=== PATIENT | female | born 1930 | race Caucasian/White ===

== ENCOUNTER 2017-06-18 18:58 | Emergency (ER) | payer OTHER ==
[~2017-06-18] VITALS: Ht 157.5 cm; Wt 71.2 kg
[2017-06-18 18:58] VITALS: BP_SYST 147
[2017-06-18] MEDS ORDERED: MORPHINE 2 MG/ML INJ. SYRINGE IVP ONE (20:30)
[2017-06-18 21:15] VITALS: BP_SYST 147
== END 2017-06-18 21:15 | disposition home or self-care (01) ==
LOC: SED 18:58
DX: S52.502A Unspecified fracture of the lower end of left radius, initial encounter for closed fracture (principal); S52.602A Unspecified fracture of lower end of left ulna, initial encounter for closed fracture; W01.0XXA Fall on same level from slipping, tripping and stumbling without subsequent striking against object, initial encounter; Y93.89 Activity, other specified; Y92.098 Other place in other non-institutional residence as the place of occurrence of the external cause; Y99.8 Other external cause status
CPT/HCPCS: 29125; 73100; 96374; 99284; J2270

== ENCOUNTER 2018-07-16 15:53 | Emergency (ER) | payer OTHER ==
[~2018-07-16] VITALS: Ht 152.4 cm; Wt 63.5 kg
[2018-07-16 16:16] VITALS: BP_SYST 154
--- NOTE | 2018-07-16 16:37 | NUR ---
Patient to ER bed 05 to gown for evaluation. Side rails up.
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
--- NOTE | 2018-07-16 16:51 | NUR ---
[place] STATION SUPERINTENDENT at bedside examining patient
[2018-07-16] MEDS ORDERED: BACITRACIN 1 GM OINT TP ONE (17:00)
[2018-07-16] MEDS ORDERED: LIDOCAINE 1% 10 MG/ML, 20 ML MDV INJ ONE (17:30)
[2018-07-16 19:27] VITALS: BP_SYST 144
--- NOTE | 2018-07-16 19:27 | NUR ---
Patient given written and verbal discharge instructions and verbalizes understanding. ER MD discussed with patient the results and treatment provided. Patient in stable condition. ID arm band removed. Rx of Bacitracin and Tylenol Extra Strength given. Patient educated on pain management and to follow up with PMD. Pain Scale 0. Opportunity for questions provided and answered. Medication side effect fact sheet provided.
== END 2018-07-16 19:27 | disposition home or self-care (01) ==
LOC: SED 15:53
DX: S61.412A Laceration without foreign body of left hand, initial encounter (principal); W26.8XXA Contact with other sharp object(s), not elsewhere classified, initial encounter; Y93.89 Activity, other specified; Y92.59 Other trade areas as the place of occurrence of the external cause; Y99.8 Other external cause status
CPT/HCPCS: 12002; 73130; 99284; J2001

== ENCOUNTER 2018-07-22 08:38 | Emergency (ER) | payer OTHER ==
[~2018-07-22] VITALS: Ht 147.3 cm; Wt 65.3 kg
[2018-07-22 08:42] VITALS: BP_SYST 138
[2018-07-22 09:03] VITALS: BP_SYST 138
== END 2018-07-22 09:04 | disposition home or self-care (01) ==
LOC: SED 08:38
DX: S61.412D Laceration without foreign body of left hand, subsequent encounter (principal); W26.8XXD Contact with other sharp object(s), not elsewhere classified, subsequent encounter
CPT/HCPCS: 99281

== ENCOUNTER 2022-04-20 13:12 | Inpatient (IN) | payer OTHER ==
[~2022-04-20] VITALS: Ht 154.9 cm; Wt 68.0 kg
[2022-04-20 13:33] VITALS: BP_SYST 143
--- NOTE | 2022-04-20 15:10 | NUR ---
Placed in room 02 . Placed on farm management teacher, blood pressure machine and pulse oximeter. To gown for exam. Side rails up.
--- NOTE | 2022-04-20 15:20 | NUR ---
RECEIVED PT FROM ROSSY FRAZIER. PT HAS C/O WEAKNESS X1 DAY. DAUGHTER STATES SHE IS ACTING FATIGUED. RESP E/U. ON R/A. ABDOMEN SOFT, NONTENDER, NONDISTENDED. BOWEL SOUNDS ACTIVE. DENIES N/V/D/C. DENIES HEMATURIA, PAIN UPON URINATION, DIFFICULTY URINATING. DISTAL PULSES NORMAL, NO EDEMA, SKIN CDI. PT DENIES PAIN. VSS. SIDERAILS UP X2.
[2022-04-20 17:05] LABS: BILIRUBIN,URINE NEGATIVE (NEGATIVE); BLOOD, URINE NEGATIVE (NEGATIVE); CLARITY/URINE CLEAR (CLEAR); COLOR,URINE YELLOW (YELLOW); GLUCOSE,URINE NEGATIVE (NEGATIVE); KETONES,URINE TRACE (NEGATIVE); LEUKOCYTE ESTERASE ,URINE TRACE (NEGATIVE); NITRITE, URINE NEGATIVE (NEGATIVE); PH,URINE 5.5 (5.0-8.0); PROTEIN URINE NEGATIVE (NEGATIVE); UROBILINOGEN,URINE 0.2 (0.2-1.0)
[2022-04-20 17:13] LABS: BACTERIA,URINE FEW /HPF (None Seen); MUCUS,URINE None Seen /LPF (None Seen); RBC,URINE 0-3 /HPF (0-3)
[2022-04-20 17:56] LABS: BASOPHILS # (AUTO) 0.1 K/uL (0.0-0.2); BASOPHILS % (AUTO) 0.7 % (0.0-2.0); EOSINOPHILS % (AUTO) 0.3 % (0.0-4.0); HEMATOCRIT 43.6 % (36-48); HEMOGLOBIN 14.3 g/dL (12.0-16.0); LYMPHOCYTES # (AUTO) 1.3 K/uL (1.0-5.5); LYMPHOCYTES % (AUTO) 15.5 % (20.5-51.5); MEAN CORPUSCULAR HEMOGLOBIN 29 pg (27-31); MEAN CORPUSCULAR HGB CONC 33 % (32-36); MEAN CORPUSCULAR VOLUME 89 fL (79.0-98.0); MONOCYTES # (AUTO) 0.4 K/uL (0.0-1.0); MONOCYTES % (AUTO) 4.1 % (1.7-9.3); NEUTROPHILS # (AUTO) 6.9 K/uL (1.8-7.7); NEUTROPHILS % (AUTO) 79.4 % (40.0-70.0); PLATELET COUNT (AUTO) 191 K/uL (130-430); RED BLOOD CELL COUNT(AUTO) 4.89 MIL/uL (4.2-6.2); RED CELL DISTRIBUTION WIDTH 14.9 % (9.0-15.0); WHITE BLOOD COUNT (AUTO) 8.7 K/uL (4.8-10.8)
[2022-04-20 18:12] LABS: ANION GAP 8 (5-15); CALCIUM 9.5 mg/dL (8.4-11.0); CHLORIDE 103 mmol/L (98-107); CREATININE 0.65 mg/dL (0.55-1.30); GLUCOSE 96 mg/dL (70-99); POTASSIUM 4.2 mmol/L (3.5-5.1); SODIUM SERUM 138 mmol/L (136-145); UREA NITROGEN, BLOOD 17 mg/dL (8-21)
[2022-04-20 18:18] LABS: ALANINE AMINOTRANSFERASE 22 U/L (12-78); ALBUMIN 3.6 g/dL (3.4-4.8); ASPARTATE AMINOTRANSFERASE 25 U/L (10-37); TOTAL BILIRUBIN 0.3 mg/dL (0.0-1.0)
--- NOTE | 2022-04-20 19:50 | NUR ---
COVID SWAB OBTAINED AND SENT TO LAB
[2022-04-20] MEDS ORDERED: ESCI5TAB PO (19:51)
--- NOTE | 2022-04-20 19:51 | NUR ---
Medication reconciliation completed with information provided by PATIENT BOTTLE. Any prior medication reconciliation on file was reviewed and corrected.
--- NOTE | 2022-04-20 19:55 | NUR ---
Admit bed requested Patient will be admitted to care of . Admitted to TELEMETRY unit. Diagnosis Inpatient (Yes or No) NO Observation (Yes or No) YES Orientation concerns or request close to nursing station (Yes or No) NO Covid Status PENDING On vent or bipap NO Isolation requirements NO Needs a sitter NO From Home (Yes or if No enter name of facility) YES Requires Dialysis (Yes or No) NO Med Rec Completed (Yes of No) YES
--- NOTE | 2022-04-21 00:34 | NUR ---
PT WAS ADMITTED TO 104B ACCOMPANIED BY SAI AND RN PT IN STABLE CONDITION BEDSIDE REPORT GIVEN TO KONRAD BLAIR. ALL QUESTIONS ANSWERED
--- NOTE | 2022-04-21 02:28 | NUR ---
Received report from ROSSY Smith. Patient is sleeping in bed, unlabored breathing on room air. Bed low and locked, exit alarm on.
--- NOTE | 2022-04-21 03:35 | NUR ---
ADMIT PT CAME FROM ED WAS ADMITTED TO TELE. PT IS AOX2 TAMAZIGHT SPEAKING. PT HAS IV 20 G IN L A/C AND SL. FLUSHED AND PATENT. PT ON R/A AND SATS ARE 96%, PT WAS PLACED ON TELE MONITOR AND IS RUNNING NSR @ 83. PT IS CONTINENT OF BOWEL AND BLADDER AND IS ABLE TO USE BSC. PT HAS BM IN ED AROUND 2300. PT GIVEN COMPLETED BED BATH AND IS RESTING COMFORTABLE. ALL SAFETY PRECAUTIONS ARE IN PLACE. NAYAN CONTINUE TO MONITOR
[2022-04-21 03:42] VITALS: BP_SYST 139
[2022-04-21 03:58] VITALS: BP_SYST 139
--- NOTE | 2022-04-21 06:19 | NUR ---
Closing Patient resting in bed, unlabored breathing on room air. Ambulatory with assist but unsteady. Call light in reach, exit alarm on, bed low and locked. Passed bedside swallow screen with no difficulties. Speech clear. No facial asymmetry or droop noted. No drift noted in extremities.
[2022-04-21 07:08] LABS: ALANINE AMINOTRANSFERASE 21 U/L (12-78); ALBUMIN 3.3 g/dL (3.4-4.8); ANION GAP 8 (5-15); ASPARTATE AMINOTRANSFERASE 21 U/L (10-37); CALCIUM 8.9 mg/dL (8.4-11.0); CHLORIDE 104 mmol/L (98-107); CREATININE 0.49 mg/dL (0.55-1.30); GLUCOSE 97 mg/dL (70-99); POTASSIUM 3.9 mmol/L (3.5-5.1); SODIUM SERUM 139 mmol/L (136-145); TOTAL BILIRUBIN 0.6 mg/dL (0.0-1.0); UREA NITROGEN, BLOOD 11 mg/dL (8-21)
[2022-04-21 07:10] LABS: BASOPHILS % (AUTO) 0.2 % (0.0-2.0); EOSINOPHILS % (AUTO) 0.3 % (0.0-4.0); HEMATOCRIT 40.9 % (36-48); LYMPHOCYTES # (AUTO) 1.3 K/uL (1.0-5.5); LYMPHOCYTES % (AUTO) 13.7 % (20.5-51.5); MEAN CORPUSCULAR HEMOGLOBIN 30 pg (27-31); MEAN CORPUSCULAR HGB CONC 34 % (32-36); MEAN CORPUSCULAR VOLUME 89 fL (79.0-98.0); MONOCYTES # (AUTO) 0.5 K/uL (0.0-1.0); MONOCYTES % (AUTO) 5.7 % (1.7-9.3); NEUTROPHILS # (AUTO) 7.5 K/uL (1.8-7.7); NEUTROPHILS % (AUTO) 80.1 % (40.0-70.0); PLATELET COUNT (AUTO) 188 K/uL (130-430); RED BLOOD CELL COUNT(AUTO) 4.62 MIL/uL (4.2-6.2); RED CELL DISTRIBUTION WIDTH 14.3 % (9.0-15.0); WHITE BLOOD COUNT (AUTO) 9.3 K/uL (4.8-10.8)
[2022-04-21 08:00] VITALS: BP_SYST 116
--- NOTE | 2022-04-21 08:30 | NUR ---
Pt is alert but forgetful at times. Provided pt with walker and assisted pt to the bathroom. AM hygiene provided. Escorted back to bed. Bed alarm placed and call light placed within reach.
[2022-04-21 12:00] VITALS: BP_SYST 119
--- NOTE | 2022-04-21 12:00 | NUR ---
Family at the bedside, provided with update. MRI scheduled for saturday per md order.
[2022-04-21 16:00] VITALS: BP_SYST 119
--- NOTE | 2022-04-21 18:43 | NUR ---
Pt ambulating frequently with walker and family member in the hallways. Pt also up in the chair eating her meals. Pt is occassionally forgetful and tries to walk out alone, so re-oriented pt to surroundings and monitored pt closely near the nurses' station. Pt uses walker to void in the bathroom, tolerating well.
--- NOTE | 2022-04-21 19:15 | NUR ---
OPENING NOTE REPORT RECEIVED FROM DAYSHIFT NURSE. PATIENT RECEIVED SITTING BY BEDSIDE, NO S/S OF ACUTE DISTRESS. BREATHING IS EVEN AND UNLABORED. DENIES PAIN. PATIENT'S SON IS AT BEDSIDE AT THIS TIME. CALL LIGHT WITHIN REACH. BED IS LOCKED AND AT LOWEST POSITION. WILL CONTINUE TO MONITOR.
[2022-04-21 20:00] VITALS: BP_SYST 122
[2022-04-22] VITALS: BP_SYST 117
--- NOTE | 2022-04-22 06:13 | NUR ---
CLOSING NOTE PATIENT IN BED, SLEEPING COMFORTABLY. NO S/S OF ACUTE DISTRESS, BREATHING EVEN AND UNLABORED. IV SITE PATENT, NO SIGNS OF INFILTRATION OR INFECTION NOTED. ALL NEEDS MET THROUGHOUT SHIFT. FALL AND SAFETY PRECAUTIONS MAINTAINED THROUGHOUT SHIFT. WILL CONTINUE TO MONITOR UNTIL PATIENT CARE IS ENDORSED TO ONCOMING DAYSHIFT NURSE.
[2022-04-22 08:00] VITALS: BP_SYST 128
[2022-04-22 12:00] VITALS: BP_SYST 110
[2022-04-22 16:00] VITALS: BP_SYST 99
--- NOTE | 2022-04-22 16:18 | NUR ---
Dietitian Recommendations * Continue Regular diet LP, MS, RD Please refer to Nutrition Assessment for details. Addendum: 04/22/22 at [address] Amended: Links added.
[2022-04-22 20:00] VITALS: BP_SYST 122
[2022-04-23 00:10] VITALS: BP_SYST 130
[2022-04-23 07:49] VITALS: BP_SYST 145
--- NOTE | 2022-04-23 11:56 | NUR ---
PAGED DR CONNER PT C/O NECK PAIN. 01/09, FAMILY WANTS TO INFORM .
[2022-04-23 12:45] VITALS: BP_SYST 135
--- NOTE | 2022-04-23 13:28 | NUR ---
dr dutton here and seen and talked to pt and family, informed md of the complain neck pain. Addendum: 04/23/22 at 1331 by Rickie Green RN dr dutton said watch out for the result of the mri and eeg.
--- NOTE | 2022-04-23 18:06 | NUR ---
PAGED DR CONNER PAGEValdemar FOR PAIN MED. PT'S DTR HERE , STATED PT C/O OF NECK PAIN. REQUESTING FOR PAIN MED.
[2022-04-23 18:20] VITALS: BP_SYST 124
[2022-04-23] MEDS ORDERED: ACETAMINOPHEN 325 MG TABLET PO PRN (18:30)
[2022-04-23] MEDS ORDERED: ACETAMINOPHEN 325 MG TABLET ONE (18:44)
--- NOTE | 2022-04-23 18:51 | NUR ---
pt given tylenol for 3/10 neck pain.
[2022-04-23 20:00] VITALS: BP_SYST 120
[2022-04-24] VITALS: BP_SYST 141
[2022-04-24 08:00] VITALS: BP_SYST 122
[2022-04-24] MEDS ORDERED: ASPI-1393 PO (11:44)
[2022-04-24 12:00] VITALS: BP_SYST 109
--- NOTE | 2022-04-24 14:06 | NUR ---
spoke with NABEEL Martin telshannan [phone] or [phone] for [facility].
--- NOTE | 2022-04-24 14:45 | NUR ---
Discharge appointments and vendors arranged by [facility] Supervisor Adult Education Kylee Franklin [phone] Dr. [facility] will call with date and time Dr. Owusu Neurologist [facility] will call with date and time Pulmonology evaluation with [facility] provider for [facility] [phone] auth# [id number] Home safety evaluation, vital checks and med rec Agency will call and schedule visit. Please call Patient Support Center [phone] for worsening symptoms or trouble getting your medicine. For care needs when provider office is closed, contact [facility] [place] [phone] or [facility] [place] [phone].
[2022-04-24 14:49] VITALS: BP_SYST 109
--- NOTE | 2022-04-24 15:48 | NUR ---
D/C Patient Patient given medication reconciliation form and D/C instructions. Exit Care provided. Patient verbalized understanding. MD discussed with patient the results and treatment provided. Ambulatory with steady gait for discharge to home. Patient in stable condition, ID band removed. IV catheter removed, intact and dressing applied, no active bleeding. Rx of ASA given. Patient AND PTS' GRANDSON educated on TIA AND STROKE SYMPTOMS AND pain management. All belongings sent with patient.
--- NOTE | 2022-05-14 12:09 | NUR ---
Cover Maker CUSTOMER MARKETING ASSISTANT made a Post Discharge Follow Up Phone Call to past pt, Phoebe Reyes's daughter, Edith Campos who stated her mom, past pt, Phoebe Campos is with her currently. A follow up apt. with PCP Dr. Morrell has been made for sometime in June. CUSTOMER MARKETING ASSISTANT also inquired about an apt. with Dr. Owusu and a Pulmonology apt. and lastly with HH . Daughter stated her mom started taking aspirin daily. They will call Joanne LEES from [facility] re. and ask about PT since has not contacted them no has [facility] for the noted Home Safety Eval. Joanne's notes are below form Discharge. CUSTOMER MARKETING ASSISTANT will remain available as needed. Discharge appointments and vendors arranged by [facility] Terminal Operator Kylee Franklin [phone] Dr. [facility] will call with date and time Dr. Owusu Neurologist [facility] will call with date and time Pulmonology evaluation with [facility] provider for [facility] [phone] auth# [id number] Home safety evaluation, vital checks and med rec Agency will call and schedule visit. Please call Patient Support Center [phone] for worsening symptoms or trouble getting your medicine. For care needs when provider office is closed, contact [facility] [place] [phone] or [facility]ami[facility] [place] [phone].
== END 2022-04-24 15:48 | disposition home health service (06) | DRG 66 ==
LOC: SED 13:12 → OBSVTOIN 19:13 → INTOOBSV 19:13 → STU 19:13 → OBSVTOIN 04-22 14:03
PROVIDERS: ADMIT Internal Medicine; ATTEND Internal Medicine
PROC: 4A10X4Z Monitoring of Central Nervous Electrical Activity, External Approach (ICD-10-PCS; principal; 2022-04-23)
DX: I63.9 Cerebral infarction, unspecified (principal); R47.81 Slurred speech; F41.9 Anxiety disorder, unspecified; G47.00 Insomnia, unspecified; F03.90 Unspecified dementia, unspecified severity, without behavioral disturbance, psychotic disturbance, mood disturbance, and anxiety; R13.10 Dysphagia, unspecified; Z20.822 Contact with and (suspected) exposure to COVID-19
CPT/HCPCS: 36415; 70450-TC; 70551; 71045; 76376; 80053; 81000; 83605; 85025; 87040; 93005; 93880; 95816; 99285; G0378